=== PATIENT | male | born 1940 | race Caucasian/White ===

== ENCOUNTER 2019-02-24 08:49 | Day surgery (SDC) | payer MEDICARE, BC ==
[2019-02-24] MEDS ORDERED: IRR STERIL WATER FOR IRR 1000 ML BOTTLE IR ONE (08:50)
[2019-02-24] MEDS ORDERED: PROPOFOL 200 MG/20 ML BOTTLE IV ONE (08:50)
[2019-02-24] MEDS ORDERED: LIDOCAINE-MPF 2% 5 ML VIAL IJ ONE (08:50)
== END 2019-02-24 14:00 | disposition home or self-care (01) ==
LOC: DS 08:49
PROVIDERS: ATTEND Surgery
DX: R19.4 Change in bowel habit (principal); R63.4 Abnormal weight loss; D12.0 Benign neoplasm of cecum; K63.89 Other specified diseases of intestine; Z80.0 Family history of malignant neoplasm of digestive organs; Z86.010 Personal history of colon polyps; Z79.82 Long term (current) use of aspirin; Z79.899 Other long term (current) drug therapy; Z98.890 Other specified postprocedural states; Z72.89 Other problems related to lifestyle
CPT/HCPCS: 45385; 71045; 93005; J3490; J7120; A4217; A4663